=== PATIENT | female | born 1985 | race Caucasian/White ===

== ENCOUNTER 2017-09-06 21:31 | Emergency (ER) | payer OTHER ==
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
[2017-09-07] MEDS ORDERED: CYCLOBENZAPRINE HCL 10 MG TAB PO ONE (00:28)
[2017-09-07] MEDS ORDERED: predniSONE 20 MG TAB PO ONE (00:28)
[2017-09-07] MEDS ORDERED: SODIUM CHLORIDE 0.9% 1000ML 1,000 ML IVS ONE (00:28)
[2017-09-07] MEDS ORDERED: POTASSIUM CHLORIDE ELIXIR 20 MEQ/15 ML UD PO ONE (00:29)
[2017-09-07] MEDS ORDERED: predniSONE 20 MG TAB ONE (01:59)
[2017-09-07] MEDS ORDERED: CYCLOBENZAPRINE HCL 10 MG TAB ONE (01:59)
[2017-09-07] MEDS ORDERED: POTASSIUM CHLORIDE ELIXIR 20 MEQ/15 ML UD ONE (02:00)
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
[2017-09-07 04:14] VITALS: O2SAT 98
[2017-09-07 04:16] VITALS: BP 145/92; TEMP 97.4
== END 2017-09-07 03:50 | disposition home or self-care (01) ==
LOC: ER 21:31
DX: M54.2 Cervicalgia (principal); T71.9XXA Asphyxiation due to unspecified cause, initial encounter
CPT/HCPCS: 36415; 70360; 70491; 72040; 80053; 84703; J7030; J7512

== ENCOUNTER 2019-03-16 09:49 | Emergency (ER) | payer OTHER ==
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
[2019-03-16] MEDS ORDERED: AZITHROMYCIN 250 MG TAB PO ONE (11:10)
[2019-03-16] MEDS ORDERED: LIDOCAINE 1% 2 ML VIAL INJ ONE (11:18)
[2019-03-16 11:57] VITALS: BP 138/89; TEMP 98.3; O2SAT 99
== END 2019-03-16 11:56 | disposition home or self-care (01) ==
LOC: ER 09:49
DX: R10.2 Pelvic and perineal pain (principal); R30.0 Dysuria; N89.8 Other specified noninflammatory disorders of vagina; Z87.440 Personal history of urinary (tract) infections; Z87.891 Personal history of nicotine dependence; Z91.040 Latex allergy status; Z88.8 Allergy status to other drugs, medicaments and biological substances
CPT/HCPCS: 81001; 87086; 87491; 87591; J0696; Q0144

== ENCOUNTER 2019-05-09 13:13 | Emergency (ER) | payer SELFPAY ==
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
[2019-05-09] MEDS ORDERED: cefTRIAXone SODIUM 1 GM VIAL IM ONE (13:38)
[2019-05-09] MEDS ORDERED: CLINDAMYCIN PHOSPHATE 150 MG/ML VIAL IM ONE (13:38)
[2019-05-09] MEDS ORDERED: DEXAMETHASONE INJ 4 MG/ML VIAL IM ONE (13:38)
[2019-05-09 14:56] VITALS: BP 129/107; TEMP 99.7; O2SAT 95
== END 2019-05-09 14:50 | disposition home or self-care (01) ==
LOC: ER 13:13
DX: J03.90 Acute tonsillitis, unspecified (principal); Z87.891 Personal history of nicotine dependence; Z91.040 Latex allergy status; Z79.899 Other long term (current) drug therapy; Z88.8 Allergy status to other drugs, medicaments and biological substances
CPT/HCPCS: 87070; 87880; J0696; J1100; J3490